=== PATIENT | male | born 1995 | race Caucasian/White ===

== ENCOUNTER 2019-06-22 19:12 | Emergency (ER) | payer OTHER ==
[~2019-06-22] VITALS: Ht 180.3 cm; Wt 72.6 kg
[2019-06-22 19:23] VITALS: BP 127/86
[2019-06-23 00:19] VITALS: BP 138/89
== END 2019-06-23 00:19 | disposition home or self-care (01) ==
LOC: MED 19:12
DX: S01.551A Open bite of lip, initial encounter (principal); W55.01XA Bitten by cat, initial encounter; Y93.89 Activity, other specified; Y92.89 Other specified places as the place of occurrence of the external cause; Y99.8 Other external cause status
CPT/HCPCS: 90471; 90715; 99283